=== PATIENT | male | born 1955 | race Caucasian/White ===

== ENCOUNTER 2019-07-17 10:30 | Outpatient (AMBR) | payer BC, SELFPAY ==
--- NOTE | 2019-06-26 20:04 | PT.ODAYNRPT ---
PT Outpatient Daily Note Date of Service: June 26, 2019 OP Daily Note Visit Reasons: back pain Outpatient Physical Therapy Treatment Date: 06/26/19 Subjective: Not much change since starting therapy Objective: See F/S for therex Mechanical traction L/S x7 at 40 lbs Assessment: Good therex tolerance with low tissue irritability today. Slow progress with goals so far due to continued variable LBP level. Plan: Continue per POC Length of Time (minutes) of Treatment: 30 Minutes Office Procedures PT Procedures PT Date of Service: 06/26/19 Therapeutic Exercise 30 minutes: Yes
--- NOTE | 2019-06-30 11:34 | PT.ODAYNRPT ---
PT Outpatient Daily Note Date of Service: June 30, 2019 OP Daily Note Visit Reasons: back pain Outpatient Physical Therapy Treatment Date: 06/30/19 Subjective: Not much change since starting therapy Objective: See F/S for therex MT: STM to L4-5 paraspinals with [place]aston x15' Assessment: Good therex tolerance with low tissue irritability today. Pt has multiple areas moderately TTP of paraspinals of L/S. Slow progress with goals so far due to continued variable LBP level. Plan: Continue per POC Length of Time (minutes) of Treatment: 30 Minutes Office Procedures PT Procedures PT Date of Service: 06/26/19 Therapeutic Exercise 30 minutes: Yes PT Procedures PT Date of Service: 06/30/19 Therapeutic Exercise 15 minutes: Yes Manual Marine Steam Fitter Helper 15 minutes: Yes
--- NOTE | 2019-07-03 12:04 | PT.ODAYNRPT ---
PT Outpatient Daily Note Date of Service: July 03, 2019 OP Daily Note Visit Reasons: back pain Outpatient Physical Therapy Treatment Date: 07/03/19 Subjective: Not much change since starting therapy, the pain comes and goes Objective: See F/S for therex MT: STM to L4-5, L5-S1 on R paraspinals with Graston x10' Assessment: Good therex tolerance with low tissue irritability today. Pt has multiple areas moderately TTP of paraspinals of L/S. Slow progress with goals so far due to continued variable LBP level. Plan: Continue per POC Length of Time (minutes) of Treatment: 30 Minutes Office Procedures PT Procedures PT Date of Service: 06/26/19 Therapeutic Exercise 30 minutes: Yes PT Procedures PT Date of Service: 06/30/19 Therapeutic Exercise 15 minutes: Yes Manual Territory Sales Consultant 15 minutes: Yes PT Procedures PT Date of Service: 07/03/19 Therapeutic Exercise 15 minutes: Yes Manual Territory Sales Consultant 15 minutes: Yes
--- NOTE | 2019-07-08 11:39 | PT.ODAYNRPT ---
PT Outpatient Daily Note Date of Service: July 08, 2019 OP Daily Note Visit Reasons: back pain Outpatient Physical Therapy Treatment Date: 07/08/19 Subjective: More soreness in the LB today. The pain comes and goes Objective: See F/S for therex MT: STM to L4-5, L5-S1 on R paraspinals with Graston x10' Assessment: Good therex tolerance with low tissue irritability today. Pt has multiple areas moderately TTP of paraspinals of L/S. Slow progress with goals so far due to continued variable LBP level. Plan: Continue per POC Length of Time (minutes) of Treatment: 30 Minutes Office Procedures PT Procedures PT Date of Service: 06/26/19 Therapeutic Exercise 30 minutes: Yes PT Procedures PT Date of Service: 06/30/19 Therapeutic Exercise 15 minutes: Yes Manual Community Health Coordinator 15 minutes: Yes PT Procedures PT Date of Service: 07/03/19 Therapeutic Exercise 15 minutes: Yes Manual Community Health Coordinator 15 minutes: Yes PT Procedures PT Date of Service: 07/08/19 Therapeutic Exercise 15 minutes: Yes Manual Community Health Coordinator 15 minutes: Yes
--- NOTE | 2019-07-10 10:11 | PT.ODAYNRPT ---
PT Outpatient Daily Note Date of Service: July 10, 2019 OP Daily Note Visit Reasons: back pain Outpatient Physical Therapy Treatment Date: 07/10/19 Subjective: More soreness in the LB today. The pain comes and goes Objective: See F/S for therex Mechanical traction L/s at 35 lbs x7' Assessment: Pt is ambulating with flexed trunk due to LBP. Pt has multiple areas moderately TTP of paraspinals of L/S. Slow progress with goals so far due to continued variable LBP level. Plan: Reassess Length of Time (minutes) of Treatment: 30 Minutes Office Procedures PT Procedures PT Date of Service: 06/26/19 Therapeutic Exercise 30 minutes: Yes PT Procedures PT Date of Service: 07/10/19 Therapeutic Exercise 30 minutes: Yes PT Procedures PT Date of Service: 06/30/19 Therapeutic Exercise 15 minutes: Yes Manual Ore Dressing Engineer 15 minutes: Yes PT Procedures PT Date of Service: 07/03/19 Therapeutic Exercise 15 minutes: Yes Manual Ore Dressing Engineer 15 minutes: Yes PT Procedures PT Date of Service: 07/08/19 Therapeutic Exercise 15 minutes: Yes Manual Ore Dressing Engineer 15 minutes: Yes
--- NOTE | 2019-07-17 17:14 | PTNOTE_ITS ---
PT OP Progress/Discharge Note Date of Service: July 17, 2019 Progress Note/DC Note Progress Note/Discharge Note: DC Note Patient Information Visit Reasons: back pain Service Continue Service or Discharge: Discharge Discharge Date: 07/17/19 Status Subjective: More soreness in the LB today. The pain comes and goes depending on activity. Not much change since starting therapy. He thinks he will see orthopedic surgeon. Objective: See F/S for therex MT: STM L/S paraspinals L45-, L5-S1 region x10' Trunk AROM: Extension: 10% with pain Flexion: 4 from floor with relief LE strength: B HS: 4/5 Quads: 4/5 TTP: L5-S1 region min/mod Assessment: Pt has attended 10/31 Rx visits with limited progress with therapy goals due to continued moderate tissue irritability and variable LBP level. Pt is ambulating with flexed trunk due to LBP and has difficulty with trunk extension. Pt has multiple areas moderately TTP of lumbar paraspinals. Slightly better LE strength in quads and HS. PT recommends orthopedic evaluation. Plan: Pt is discharged to provider for further workup. Office Procedures PT Procedures PT Date of Service: 06/26/19 Therapeutic Exercise 30 minutes: Yes PT Procedures PT Date of Service: 07/10/19 Therapeutic Exercise 30 minutes: Yes PT Procedures PT Date of Service: 07/17/19 Therapeutic Exercise 15 minutes: Yes Manual Tool Maintenance Worker 15 minutes: Yes PT Procedures PT Date of Service: 06/30/19 Therapeutic Exercise 15 minutes: Yes Manual Tool Maintenance Worker 15 minutes: Yes PT Procedures PT Date of Service: 07/03/19 Therapeutic Exercise 15 minutes: Yes Manual Tool Maintenance Worker 15 minutes: Yes PT Procedures PT Date of Service: 07/08/19 Therapeutic Exercise 15 minutes: Yes Manual Tool Maintenance Worker 15 minutes: Yes
== END 2019-07-24 23:59 | disposition home or self-care (01) ==
PROVIDERS: PCP Family Medicine; Referring Provider Family Medicine; Visit Provider Family Medicine
DX: M51.26 Other intervertebral disc displacement, lumbar region (principal); M54.41 Lumbago with sciatica, right side
CPT/HCPCS: 97110; 97140

== ENCOUNTER → 2024-05-26 | Outpatient (CLI) | payer MEDICARE, SELFPAY ==
[2024-05-26 13:53] LABS: Glucose Estimated Average 131 mg/dL (80-131); Hemoglobin A1C 6.2 % Hgb (4.8-6.0)
== END | disposition home or self-care (01) ==
LOC: COPL 11:25
PROVIDERS: PCP Family Medicine; Referring Provider Family Medicine; Visit Provider Family Medicine
DX: E03.9 Hypothyroidism, unspecified (principal)
CPT/HCPCS: 36415; 83036

== ENCOUNTER → 2024-10-13 | Outpatient (CLI) | payer MEDICARE, SELFPAY ==
[2024-10-13 07:41] LABS: Collection Type, Urine Clean Catch; Squamous Epithelial Cell,Urine 0 /hpf (0-5)
[2024-10-13 07:51] LABS: Prostate Specific Antigen 2.67 ng/mL (0-4.00)
[2024-10-13 07:54] LABS: Glucose Estimated Average 143 mg/dL (80-131); Hemoglobin A1C 6.6 % Hgb (4.8-6.0); Vitamin D 25 Hydroxy Total 45.1 ng/mL (7.3-40.2)
[2024-10-13 08:01] LABS: Basophils # (Auto) 0.0 Thou/mm3 (0.0-0.2); Basophils % (Auto) 1 % (0-2.5); Eosinophils # (Auto) 0.1 Thou/mm3 (0.0-0.5); Eosinophils % (Auto) 1 % (0-10); Hematocrit 38.9 % (41.0-53.0); Hemoglobin 13.5 g/dL (13.5-16.0); Immature Granulocytes Auto 0.02 Thou/mm3 (0.00-0.00); Lymphocytes # (Auto) 1.3 Thou/mm3 (1.0-4.8); Lymphocytes % (Auto) 24 % (10-50); Mean Corpuscular HGB Conc 34.7 g/dl (31.0-37.0); Mean Corpuscular Hemoglobin 31.5 pg (25.0-35.0); Mean Corpuscular Volume 91 fL (80-100); Monocytes # (Auto) 0.4 Thou/mm3 (0.0-0.8); Monocytes % (Auto) 7 % (0-12); Neutrophils # (Auto) 3.7 Thou/mm3 (1.8-7.7); Neutrophils % (Auto) 67 % (37-80); Nucleated Red Blood Cell # 0.00 Thou/mm3 (0.00-0.00); Nucleated Red Blood Cell % 0 /100 WBC (0); Platelet Count 221 Thou/mm3 (140-440); RDW Standard Deviation 42.2 fL (35.1-43.9); Red Blood Count 4.29 Miln/mm3 (4.50-5.90); White Blood Count 5.4 Thou/mm3 (3.8-10.6)
[2024-10-13 08:10] LABS: Alanine Aminotransferase < 7 U/L (10-49); Albumin, Serum 4.3 gm/dL (3.4-4.8); Albumin/Globulin Ratio 1.8 (1.2-2.2); Alkaline Phosphatase 75 U/L (46-116); Anion Gap 10 (7-16); Aspartate Amino Transferase 23 U/L (0-34); BUN/Creatinine Ratio 11 Ratio (12-20); Bilirubin,Total 0.5 mg/dL (0.3-1.2); Blood Urea Nitrogen 13 mg/dL (9-23); Calcium 9.0 mg/dL (8.3-10.6); Calcium (Corrected) 9.0 mg/dL (8.5-10.1); Carbon Dioxide 25.1 mMol/L (20.0-31.0); Cardiac Risk Estimate 5.3 RATIO (4.0-6.7); Chloride 109 mMol/L (98-107); Cholesterol 170 mg/dL (132-200); Creatinine (Component) 1.2 mg/dL (0.6-1.3); Globulin 2.4 gm/dL (2.3-3.5); Glucose 141 mg/dL (74-106); HDL Cholesterol 32 mg/dL (40-60); LDL Cholesterol,Calculated 119 mg/dL (0-130); Osmolality,Calculated 288 (275-295); Potassium 4.2 mMol/L (3.4-5.1); Sodium 144 mMol/L (136-145); Thyroid Stimulating Hormone 2.39 uIU/mL (0.55-4.78); Total Protein 6.7 gm/dL (5.7-8.2); Triglycerides 93 mg/dL (30-150); eGFR > 60 See Note
[2024-10-13 08:39] LABS: Creatinine MALB Rnd Ur 170 mg/dL (30-125); Microalbumin Creat Ratio 4 mg/gCrea (<30); Microalbumin, Random Urine 7 mg/L (0-300)
[2024-10-13 08:55] LABS: Bilirubin,Urine Negative (Negative); Blood,Urine Trace (Negative); Clarity,Urine Clear (Clear/Hazy); Color,Urine Lt-Yellow (Lt Yel-Yel); Culture Indicated,Urine Not Indicated; Glucose, Urine Negative (Negative); Ketones,Urine Negative (Negative); Leukocyte Esterase,Urine Negative (Negative); Nitrite,Urine Negative (Negative); PH,Urine 5.5 (5.0-7.0); Protein,Urine Negative (Neg - Trace); RBC,Urine 1 /hpf (0-3); Specific Gravity,Urine 1.024 (1.001-1.035); Urobilinogen,Urine Negative mg/dL (0.0-1.0); WBC,Urine 1 /hpf (0-5)
== END | disposition home or self-care (01) ==
LOC: COPL 06:54
PROVIDERS: PCP Family Medicine; Referring Provider Family Medicine; Visit Provider Family Medicine
DX: Z00.00 Encounter for general adult medical examination without abnormal findings (principal); Z12.11 Encounter for screening for malignant neoplasm of colon; Z13.0 Encounter for screening for diseases of the blood and blood-forming organs and certain disorders involving the immune mechanism; Z13.21 Encounter for screening for nutritional disorder; Z13.220 Encounter for screening for lipoid disorders; Z13.29 Encounter for screening for other suspected endocrine disorder
CPT/HCPCS: 36415; 80053; 80061; 81001; 82043; 82306; 82570; 83036; 84153; 84443; 85025